=== PATIENT | female | born 1990 ===

== ENCOUNTER 2016-10-24 15:43 | Emergency (ER) | payer BC ==
[2016-10-24 16:12] VITALS: BP 128/73
--- NOTE | 2016-10-24 17:32 | UC ---
UC General HPI - HPI Summary HPI Summary: The patient comes in today for: 1. Vomiting, diarrhea, , fatigue, backache, abdominal pain, chills; Onset: Yesterday. Palliative/provocative: Nothing makes her symptoms better or worse. She has tried Zantac and Dramamine recommended by [employer] Quality: Ache of the back, and ache of the abdomen. Region: Abdomen and the back. Severity: 6/10 Time: Backache: constant. Abdominal pain comes and goes. Associated symptoms: Fever: No temperature taken at home. Diarrhea: x 2 /24 hours. Vomitin-10/24 hours. : 15 weeks. Other's ill: none. Urination: last urination--2 hours ago--dark yellow. * - History of Current Complaint Chief Complaint: UCGI Stated Complaint: VOMITING Time Seen by Provider: 10/24/16 17:16 Hx Obtained From: Patient, Family/Palletizer - Allergy/Home Medications Allergies/Adverse Reactions: Allergies Allergy/AdvReac Type Severity Reaction Status Date / Time No Known Allergies Allergy Verified 10/24/16 16:12 Home Medications: Home Medications DiMENhydriNATE TAB* [Dramamine TAB*] 10/24/16 [History] Ranitidine HCl [Zantac] 10/24/16 [History Confirmed 10/24/16] PMH/Surg Hx/FS Hx/Imm Hx Previously Healthy: Yes Endocrine History Of: Denies: Diabetes, Thyroid Disease, Hyperthyroidism, Hypothyroidism, Dyslipidemia Cardiovascular History Of: Denies: Cardiac Disorders, Hypertension, Pacemaker/ICD, Myocardial Infarction , Congestive Heart Failure, Atrial Fibrillation, Deep Vein Thrombosis, Bleeding Disorders Respiratory History Of: Reports: Asthma - Light wheezing with exertion Denies: COPD, Bronchitis, Pneumonia, Pulmonary Embolism GI/ History Of: Denies: Gastroesophageal Reflux, Ulcer, Gastrointestinal Bleed, Gall Bladder Disease, Kidney Stones, Diverticulitis, Renal Disease, Urosepsis Neurological History Of: Reports: Migraine Denies: TIA, CVA, Dementia, Seizures Psychological History Of: Denies: Anxiety, Depression, Bipolar Disorder, Schizophrenia, Post Traumatic Stress Disorder Cancer History Of: Denies: Lung Cancer, Colorectal Cancer, Breast Cancer, Prostate Cancer, Cervical Cancer Other History Of: Negative For: HIV, Hepatitis B, Hepatitis C, Anticoagulant Therapy - Surgical History Surgical History: None - Family History Known Family History: Negative: Cardiac Disease, Hypertension - Social History Occupation: Unemployed Alcohol Use: None Substance Use Type: None Smoking Status (MU): Never Smoked Tobacco Review of Systems Constitutional: Chills, Fatigue Skin: Negative Eyes: Negative ENT: Negative Respiratory: Negative Cardiovascular: Negative Gastrointestinal: Abdominal Pain, Vomiting Genitourinary: Negative Musculoskeletal: Arthralgia Neurological: Headache All Other Systems Reviewed And Are Negative: Yes Physical Exam Triage Information Reviewed: Yes Appearance: Well-Appearing, No Pain Distress, Well-Nourished Vital Signs: Initial Vital Signs Temp 98.8 F 10/24/16 16:08 Pulse 109 10/24/16 16:08 Resp 18 10/24/16 16:08 BP 128/73 10/24/16 16:08 Pulse Ox 100 10/24/16 16:08 Vital Signs Reviewed: Yes Eyes: Positive: Conjunctiva Clear. Negative: Discharge ENT: Positive: Hearing grossly normal. Negative: Pharyngeal erythema, Nasal congestion, Nasal drainage, TM bulging, TM dull, TM red, Tonsillar swelling, Tonsillar exudate Dental: Negative: Gross Decay/Caries @, Dental Fracture @ Neck: Positive: Supple, Nontender, No Lymphadenopathy. Negative: Nuchal Rigidity Respiratory: Positive: Chest non-tender, Lungs clear, No respiratory distress, No accessory muscle use. Negative: Accessory muscle use, Crackles, Wheezing Cardiovascular: Positive: RRR, No Murmur Abdomen Description: Positive: Nontender, No Organomegaly, Soft. Negative: CVA Tenderness (R), CVA Tenderness (L), Distended, Guarding Musculoskeletal: Positive: Strength Intact, No Edema, Other: - Back: no CVA tenderness, but positive tenderness to palpation of the bilateral lumbar paraspinous musculature. Neurological: Positive: Alert, Muscle Tone Normal Psychological: Positive: Age Appropriate Behavior, Consolable Skin: Negative: rashes, breakdown Re-Evaluation - Re-Evaluation First Eval Change: Improved - At this time, the patient states that she is feeling better and wants to go home. Course/Dx - Differential Dx - Multi-Symptom Provider Diagnoses: Viral syndrome, gastroenteritis. Discharge - Discharge Plan Condition: Stable Disposition: HOME Patient Education Materials: Viral Syndrome (ED), Gastroenteritis (ED) Referrals: No Primary Care Phys,NOPCP [Primary Care Provider] - 1 Week (Please follow up with your primary care provider this coming week. If you don't have a primary care provider, you can follow up with your [employer] provider or us for re- evaluation. Start with your diet being clear liquids that have sugar in them. IF you tolerate this, then please take simple to digest foods such as bananas, rice, applesauce. If you tolerate this then advance your diet as tolerated. ) Additional Instructions: Take Dramamine (original formulation) orange flavored--50 mg/pill, taking 1-2 pills every four hours as needed for nausea. Monitor your urine color. As long as you have colorless urine (like water) and minimally yellow, you are doing well. But, if you have darker and darker urine and you are going less frequently, please be seen again.
[2016-10-24] MEDS ORDERED: diPHENhydraMINE IV* 50 MG/ML 1 ml VIAL (BENADRYL) IV ONE (17:48)
[2016-10-24] MEDS ORDERED: D5NS 0.9% 1000 ML BAG* 1,000 ML IV SCH (18:00)
== END 2016-10-24 19:45 | disposition home or self-care (01) ==
LOC: UCEAST 15:43
DX: K52.9 Noninfective gastroenteritis and colitis, unspecified (principal); B34.9 Viral infection, unspecified; G43.909 Migraine, unspecified, not intractable, without status migrainosus; J45.909 Unspecified asthma, uncomplicated
CPT/HCPCS: 96360; 96374; 99211; G0463; J1200

== ENCOUNTER 2017-04-22 07:59 | Inpatient (IN) | payer BC ==
[2017-04-22] MEDS ORDERED: Dinoprostone* 10 MG VAG.SUPP VAGINAL ONE (08:41)
[2017-04-22 10:02] LABS: Hematocrit 37 % (35-47); Hemoglobin 11.9 g/dl (12.0-16.0); Mean Corpuscular HGB Conc 33 g/dl (31-36); Mean Corpuscular Hemoglobin 26 pg (27-31); Mean Corpuscular Volume 79 fL (80-97); Mean Platelet Volume 9 um3 (7.4-10.4); Red Blood Count 4.62 10^6/ul (4.0-5.4); Red Cell Distribution Width 17 % (10.5-15); White Blood Count 8.2 10^3/ul (3.5-10.8)
[2017-04-22] MEDS ORDERED: Promethazine INJ(RESTRICTED)* 25 MG/ML 1 ML VIAL IV ONE (16:27)
[2017-04-22] MEDS ORDERED: Nalbuphine* 20 MG/ML 1 ML VIAL IV ONE (16:27)
[2017-04-22] MEDS ORDERED: OBEPIDURAL* 250 ML ONE (21:27)
[2017-04-22] MEDS ORDERED: Phenylephrine IV* 40 MCG/ML 10 ML SYRINGE IV PUSH PRN ×2 (21:59)
[2017-04-22] MEDS ORDERED: Sodium Citrate/Citric Acid* 15 ML UDC PO PRN (21:59)
[2017-04-22] MEDS ORDERED: Famotidine TAB* 20 MG PO PRN (21:59)
[2017-04-22] MEDS ORDERED: OBEPIDURAL* 250 ML EPIDURAL SCH (22:00)
[2017-04-22] MEDS ORDERED: Oxytocin in LR* 20 UNITS/1,000 ML BAG IVPB ONE (22:49)
[2017-04-23] MEDS ORDERED: ceFOXitin 2 GM IVPREMIX* 2 GM/50 ML BAG IVPB ONE (10:59)
[2017-04-23] MEDS ORDERED: oxyCODONE/Acetamin 5/325 MG* TAB PO PRN ×4 (11:00→22:15)
[2017-04-23] MEDS ORDERED: Dibucaine 1% 28.35 GM TUBE PR PRN (11:00)
[2017-04-23] MEDS ORDERED: Witch Hazel PAD* JAR TOPICAL PRN (11:00)
[2017-04-23] MEDS ORDERED: ceFOXitin 2 GM IVPREMIX* 2 GM/50 ML BAG ONE (11:01)
[2017-04-23] MEDS ORDERED: Morphine PF AMP (0.5MG/ML)* 5 MG/10 ML AMP ONE (11:09)
[2017-04-23] MEDS ORDERED: KETAMINE HCL* 50 MG/ML 10 ML VIAL ONE (11:09)
[2017-04-23] MEDS ORDERED: Midazolam* 1 MG/ML 5 ML VIAL (5 MG) ONE (11:09)
[2017-04-23] MEDS ORDERED: fentaNYL* 50 MCG/ML 2 ML VIAL (100 MCG VIAL) ONE (11:09)
[2017-04-23] MEDS ORDERED: OXYTOCIN* 10 UNITS/ML 1 ML VIAL ONE (11:37)
[2017-04-23] MEDS ORDERED: Lidocaine 2% EPI 1:200000 MPF* 20 ML VIAL ONE (11:37)
[2017-04-23] MEDS ORDERED: Ondansetron INJ* 2 MG/ML VIAL ONE (11:37)
[2017-04-23] MEDS ORDERED: Dexamethasone IV* 4 MG/ML 1 ML (4 MG) ONE (11:37)
[2017-04-23] MEDS ORDERED: Lidocaine 2% PF * 5 ML VIAL ONE (11:37)
[2017-04-23] MEDS ORDERED: EPHEDrine (Pressors)* 50 MG/ML VIAL ONE (11:38)
[2017-04-23] MEDS ORDERED: Phenylephrine INJ* 10 MG/ML 1 ML VIAL (10 MG) ONE (11:38)
[2017-04-23] MEDS ORDERED: Scopolamine 1.5 mg* PATCH ONE (11:38)
[2017-04-23] MEDS ORDERED: fentaNYL* 50 MCG/ML 2 ML VIAL (100 MCG VIAL) IV PRN (11:45)
[2017-04-23] MEDS ORDERED: Naloxone* 0.4 MG/ML 1 ML VIAL IV PRN (11:51)
[2017-04-23] MEDS ORDERED: DiMENhydriNATE IV* 50 MG/ML VIAL IV PUSH PRN (11:51)
[2017-04-23] MEDS ORDERED: Ondansetron INJ* 2 MG/ML VIAL IV PRN (11:51)
[2017-04-23] MEDS ORDERED: diPHENhydraMINE IV* 50 MG/ML 1 ml VIAL (BENADRYL) IV PRN (11:51)
[2017-04-23] MEDS ORDERED: PROCHLORPERAZINE INJ 5 MG/ML 2 ML VIAL IV PRN (11:51)
[2017-04-23] MEDS ORDERED: Naloxone* 2 MG in NS 0.9% 250 ML* 250 ML IV PRN (11:51)
[2017-04-23] MEDS ORDERED: Scopolamine PATCH Remove* 1 NOTE MISC PATCH OFF PRN (11:51)
[2017-04-23] MEDS ORDERED: Nalbuphine* 20 MG/ML 1 ML VIAL IV PRN (11:51)
[2017-04-23] MEDS: Ketorolac INJ* 30 MG/ML 1 ML VIAL IV PRN ×2 (13:26→19:29)
[2017-04-23] MEDS: Simethicone TAB* 80 MG TAB.CHEW PO SCH ×3 (14:37→19:29)
[2017-04-23] MEDS: Docusate CAP* 100 MG PO SCH ×2 (14:38→19:29)
--- NOTE | 2017-04-23 19:04 | OP ---
DATE OF OPERATION: 04/23/17 - ROOM #[facility]-104 DATE OF : 86 SURGEON: Ryder Cotto MD FIRST COAT OPERATOR: Jose Richards CNM. ANESTHESIOLOGIST: Dr. Mendoza. ANESTHESIA: Epidural. PRE-OP DIAGNOSIS: Post-term with arrest of dilation. POST-OP DIAGNOSIS: Post-term with arrest of dilation. OPERATIVE PROCEDURE: Primary low-transverse section. ESTIMATED BLOOD LOSS: 900 cc. URINE OUTPUT: 500 cc. IV FLUIDS: 1300 cc lactated Ringer's. INDICATIONS: This patient was a 26-year-old 1, para 0, who presented the day before delivery for induction of labor at 41+3 weeks gestation. The patient made progressive change to about 8 cm, but then did not have any continued cervical change director the next 4 to 6 hours. Contractions were regular with Pitocin. She had received an epidural which was effective. When there was no continued cervical change and, in fact, the cervix was becoming swollen, the decision was made to proceed with a section. She was extensively counseled and consent was signed. FINDINGS: Normal-appearing uterus, fallopian tubes, and ovaries. Delivery was productive of an 8 pounds 2 ounce male infant with Apgars of 9 and 9. Of note, the infant head circumference was 15 inches. Head position was asynclitic and occiput posterior. Time of delivery was 1147. COMPLICATIONS: None. DESCRIPTION OF PROCEDURE: The risks, benefits, and alternatives were described to the patient and informed consent was obtained. The patient was taken to the operating room with IV running where epidural anesthesia was induced and found to be adequate. The patient was prepped and draped in the normal sterile fashion in the dorsal supine position with leftward tilt. A Pfannenstiel skin incision was made with a scalpel and this was carried down to the underlying fascia sharply. The fascia was then scored in the midline with the scalpel. The incision was extended using Del Real scissors. The rectus muscles were dissected off the rectus fascia using blunt and sharp dissection. The rectus muscles were in the midline bluntly. The peritoneum was also entered bluntly. A bladder blade was placed. A bladder flap was created sharply using Metzenbaum scissors. A low transverse uterine incision was made with the scalpel. This was carried down to the amniotic cavity. The incision was extended with blunt traction. The head was elevated to the level of the incision without much difficulty and delivered through the incision. With fundal pressure, the shoulders and body delivered without difficulty. The infant had an excellent tone and cried immediately on delivery. The cord was doubly clamped and cut. The was then handed to the awaiting manager land. Cord blood was collected. The placenta then delivered with manual extraction. The uterus was then exteriorized and cleared of all clots and debris. Uterine incision was reapproximated using 0 Polysorb in a running-locked fashion. A second layer of imbricating sutures of 0 Polysorb was also placed with good hemostasis. The posterior cul-de-sac was irrigated with saline. The uterus was then returned to the abdomen, and the incision was reinspected and noted to be hemostatic. The peritoneum was closed with 3-0 Polysorb in a running fashion. The fascia was closed with 0 Polysorb in a running fashion. Subcutaneous tissues were reapproximated using 3-0 Polysorb in interrupted sutures. The skin was then closed with 4-0 Monocryl in a subcuticular stitch. Mastisol and Steri-Strips were placed over the incision which was then covered with a sterile bandage. The patient tolerated the procedure well. Sponge, lap, and needle counts were correct x2. [id number]/[facility] #: [id number] [facility]
[2017-04-24] MEDS: Ketorolac INJ* 30 MG/ML 1 ML VIAL IV PRN ×2 (01:09→09:56)
[2017-04-24] MEDS ORDERED: oxyCODONE/Acetamin 5/325 MG* TAB PO PRN (04:00)
[2017-04-24] MEDS ORDERED: Ondansetron INJ* 2 MG/ML VIAL IV PRN (06:56)
[2017-04-24] MEDS ORDERED: Ondansetron ODT TAB* 4 MG ONE (07:16)
[2017-04-24 07:44] LABS: Hematocrit 26 % (35-47); Hemoglobin 8.5 g/dl (12.0-16.0); Mean Corpuscular HGB Conc 32 g/dl (31-36); Mean Corpuscular Hemoglobin 26 pg (27-31); Mean Corpuscular Volume 79 fL (80-97); Mean Platelet Volume 9 um3 (7.4-10.4); Red Cell Distribution Width 18 % (10.5-15); White Blood Count 17.5 10^3/ul (3.5-10.8)
--- NOTE | 2017-04-24 08:28 | PN ---
Progress Note - Progress Note Date of Service: 04/24/17 Note: Anesthesia duramorph follow up. This AM the patient became hypotensive. She was complaining of pain last PM and had 4 percocets. Her BP improved with IV fluids. Dr Cotto is managing her hypotension. She is awake, complaining of pain. s/p CS continue oral meds, fluid management per Dr Cotto.
--- NOTE | 2017-04-24 08:30 | PN ---
Progress Note - Progress Note Date of Service: 04/24/17 Note: IV placement. I was asked to place additional IV for fluid management in this hypotensive patient. Several attempts had been made by the nurses. At 07:50 I placed a 20 g IV in her left hand after 2 failed attempts on right.
[2017-04-24] MEDS: Docusate CAP* 100 MG PO SCH ×3 (08:48→20:46)
[2017-04-24] MEDS: Simethicone TAB* 80 MG TAB.CHEW PO SCH ×4 (08:48→20:46)
[2017-04-24] MEDS: Ferrous Gluconate TAB* 324 MG TAB PO SCH ×2 (08:48→20:46)
[2017-04-24] MEDS ORDERED: Ibuprofen TAB* 600 MG PO SCH ×2 (12:00)
[2017-04-24] MEDS: Ibuprofen TAB* 600 MG PO SCH ×2 (15:58→22:36)
[2017-04-25] MEDS ORDERED: oxyCODONE/Acetamin 5/325 MG* TAB PO PRN (01:48)
[2017-04-25] MEDS: Ibuprofen TAB* 600 MG PO SCH ×5 (04:13→22:14)
[2017-04-25] MEDS: Simethicone TAB* 80 MG TAB.CHEW PO SCH ×5 (08:20→22:08)
[2017-04-25] MEDS: Docusate CAP* 100 MG PO SCH ×3 (08:21→22:07)
[2017-04-25] MEDS: oxyCODONE/Acetamin 5/325 MG* TAB PO PRN ×3 (08:21→19:36)
[2017-04-25] MEDS: Ferrous Gluconate TAB* 324 MG TAB PO SCH ×2 (08:22→22:08)
[2017-04-26] MEDS: Ibuprofen TAB* 600 MG PO SCH ×2 (05:08→08:08)
[2017-04-26] MEDS: oxyCODONE/Acetamin 5/325 MG* TAB PO PRN ×2 (05:08→13:11)
[2017-04-26 07:43] VITALS: BP 110/68
[2017-04-26] MEDS: Ferrous Gluconate TAB* 324 MG TAB PO SCH (08:07)
[2017-04-26] MEDS: Simethicone TAB* 80 MG TAB.CHEW PO SCH ×2 (08:07→13:11)
[2017-04-26] MEDS: Docusate CAP* 100 MG PO SCH ×2 (08:08→13:11)
--- NOTE | 2017-04-26 11:25 | PTEDU ---
Patient Name: LENORA MILLER PAUL LENORA selected video: Never Ever Shake a Baby to view on 04/26/2017 at 11:25:03 AM from [facility] [id number]
--- NOTE | 2017-04-26 12:00 | PTEDU ---
Patient Name: LENORA MILLER PAUL LENORA selected video: BBOB: Bonding Through Massage to view on 04/26/2017 at 11:59:34 [id number]
--- NOTE | 2017-04-26 12:02 | PTEDU ---
Patient Name: LENORA MILLER PAUL LENORA selected video: BBOB: Bonding Through Massage to view on 04/26/2017 at 12:01:45 PM from [id number]
[2017-04-26] MEDS ORDERED: Ondansetron ODT TAB* 4 MG PO ONE (14:39)
[2017-04-26] MEDS ORDERED: Ondansetron ODT TAB* 4 MG ONE (14:41)
== END 2017-04-26 15:40 | disposition home or self-care (01) | DRG 540 ==
LOC: MCHOBOUT 07:59 → MCHOB 08:29
PROVIDERS: ADMIT Obstetrics & Gynecology; ATTEND Obstetrics & Gynecology
PROC: 3E033VJ Introduction of Other Hormone into Peripheral Vein, Percutaneous Approach (ICD-10-PCS; 2017-04-23)
PROC: 10D00Z1 Extraction of Products of Conception, Low, Open Approach (ICD-10-PCS; principal; 2017-04-23 11:20)
DX: O32.4XX0 Maternal care for high head at term, not applicable or unspecified (principal); D64.9 Anemia, unspecified; O48.0 Post-term pregnancy; O69.89X0 Labor and delivery complicated by other cord complications, not applicable or unspecified; O90.81 Anemia of the puerperium; Z37.0 Single live birth; Z3A.41 41 weeks gestation of pregnancy
CPT/HCPCS: 36415; 85025; 86850; 86900; 86901; A9270-GY; J0694; J1100; J1885; J2250; J2300; J2405; J2550; J2590; J3010

== ENCOUNTER 2021-03-10 09:52 | Inpatient (IN) ==
[2021-03-10] MEDS ORDERED: OBEPIDURAL 250 ML EPIDURAL ONE (10:42)
[2021-03-10 10:47] LABS: Hematocrit 36 % (35-47); Hemoglobin 11.8 g/dL (12.0-16.0); Mean Corpuscular HGB Conc 33 g/dL (31-36); Mean Corpuscular Hemoglobin 26 pg (27-31); Mean Corpuscular Volume 78 fL (80-97); Mean Platelet Volume 8.8 fL (7.4-10.4); Platelet Count 194 10^3/uL (150-450); Red Blood Count 4.63 10^6 /uL (3.70-4.87); Red Cell Distribution Width 17 % (10-15); White Blood Count 8.7 10^3/uL (3.5-10.8)
[2021-03-10] MEDS ORDERED: Lactated Ringers 1000 ml BAG 1,000 ML IV ONE ×2 (10:59→12:01)
[2021-03-10] MEDS ORDERED: Buffered Lidocaine 1% SYRIN 1 ml INTRADERM ONE (10:59)
[2021-03-10] MEDS ORDERED: Lactated Ringers 1000 ml BAG 1,000 ML IV SCH ×2 (11:00→13:00)
[2021-03-10 11:12] LABS: Rapid COVID-19 Molecular Undetected (Undetected)
[2021-03-10] MEDS ORDERED: EPHEDrine (Pressors) 50 MG/ML VIAL IV PUSH PRN ×2 (12:01)
[2021-03-10] MEDS ORDERED: Phenylephrine 40 mcg/mL 10mL (400mcg) SYRINGE IV PUSH PRN ×2 (12:01)
[2021-03-10] MEDS ORDERED: Sodium Citrate/Citric Acid LIQ 15 ML UDC PO PRN (12:01)
[2021-03-10] MEDS ORDERED: Lactated Ringers 1000 ml BAG 500 ML IV PRN ×2 (12:01)
[2021-03-10 12:26] LABS: Urine Appearance Cloudy; Urine Bilirubin Negative (Negative); Urine Blood Negative (Negative); Urine Color Yellow; Urine Glucose Negative (Negative); Urine Ketones Negative (Negative); Urine Nitrite Negative (Negative); Urine Protein Negative (Negative); Urine Specific Gravity 1.014 (1.002-1.030); Urine Urobilinogen Negative (Negative)
[2021-03-10 12:46] LABS: Urine Benzodiazepine Screen None Detected (None Detect); Urine Cannabinoids Screen None Detected (None Detect); Urine Opiates Screen None Detected (None Detect)
[2021-03-10] MEDS ORDERED: OBEPIDURAL 250 ML EPIDURAL SCH (13:00)
[2021-03-10] MEDS ORDERED: Ondansetron 4 mg VIAL 2 MG/ML 2 ml VIAL IV PRN (18:40)
[2021-03-10] MEDS ORDERED: Oxytocin in LR 20 UNITS/1,000 ML BAG IVPB ONE (20:49)
[2021-03-10] MEDS ORDERED: Dibucaine 1% OINT 28.35 GM TUBE ONE (23:43)
[2021-03-10] MEDS ORDERED: Lidocaine 1% VIAL 10 MG/ML VIAL ONE (23:44)
[2021-03-11] MEDS ORDERED: Oxytocin in LR 20 UNITS/1,000 ML BAG IVPB ONE (00:25)
[2021-03-11] MEDS ORDERED: Glycerin ADULT 2.4 gm SUPP PR PRN (05:38)
[2021-03-11] MEDS ORDERED: Lactated Ringers 1000 ml BAG 1,000 ML IV SCH (06:00)
[2021-03-11 06:52] LABS: ABS Lymphocytes 1.1 10^3/ul (1.0-4.8); ABS Monocytes 0.6 10^3/ul (0-0.8); ABS Neutrophils 10.1 10^3/ul (1.5-7.7); Eosinophil % 0.1 %; Hematocrit 25 % (35-47); Hemoglobin 8.1 g/dL (12.0-16.0); Lymphocyte % 9.4 %; Mean Corpuscular HGB Conc 33 g/dL (31-36); Mean Corpuscular Hemoglobin 26 pg (27-31); Mean Corpuscular Volume 79 fL (80-97); Mean Platelet Volume 8.8 fL (7.4-10.4); Platelet Count 156 10^3/uL (150-450); Red Blood Count 3.11 10^6 /uL (3.70-4.87); Red Cell Distribution Width 16 % (10-15); White Blood Count 11.9 10^3/uL (3.5-10.8)
[2021-03-11] MEDS: Witch Hazel PAD JAR TOPICAL PRN (20:55)
[2021-03-11] MEDS: Dibucaine 1% OINT 28.35 GM TUBE PR PRN (20:55)
[2021-03-12 08:42] VITALS: BP 117/68
[2021-03-12] MEDS: Dibucaine 1% OINT 28.35 GM TUBE PR PRN (12:23)
[2021-03-12] MEDS: Witch Hazel PAD JAR TOPICAL PRN (12:23)
== END 2021-03-12 18:00 | disposition home or self-care (01) | DRG 807 ==
LOC: MCHOBOUT 09:52 → MCHOB 10:14
PROVIDERS: ADMIT Obstetrics & Gynecology; ATTEND Obstetrics & Gynecology